=== PATIENT | female | born 1975 | race Hispanic/Latino ===

== ENCOUNTER 2022-01-09 16:10 | Outpatient (CLI) | payer OTHER | END 2022-01-09 16:11 | disposition home or self-care (01) | LOC: CSHLAB 16:10 | PROVIDERS: ATTEND Obstetrics & Gynecology | DX: Z01.818 Encounter for other preprocedural examination (principal); Z20.822 Contact with and (suspected) exposure to COVID-19 | CPT/HCPCS: 87811; 93005; 93010 ==

== ENCOUNTER 2022-01-14 05:31 | Day surgery (SDC) | payer OTHER ==
[2022-01-14 06:36] LABS: Hemoglobin 9.1 g/dL (12.0-15.5); Mean Corpuscular HGB CONC 30.8 g/dL (32.0-36.0); Mean Corpuscular Hemoglobin 21.6 pg (27.0-33.0); Mean Corpuscular Volume 70.1 fl (81.6-98.3); Mean Platelet Volume 9.5 fl (7.4-10.4); Platelet Count 291 10x3/uL (150-450); RBC Distribution Width 21.7 % (11.5-14.5); Red Blood Cell (RBC) Count 4.21 10x6/uL (3.90-5.03); White Blood Cell (WBC) Count 8.6 10x3/uL (3.5-10.5)
[2022-01-14] MEDS ORDERED: Famotidine/PF 20 mg/2ml Vial ONE (06:42)
[2022-01-14] MEDS ORDERED: CeleCOXIB 100 MG CAP ONE (06:42)
[2022-01-14] MEDS ORDERED: Gabapentin 300 MG CAP ONE (06:42)
[2022-01-14 06:44] LABS: BHCG - Serum Negative (NEGATIVE); Pregs Control Background? CLEAR/WHITE (CLR/WHITE); Pregs Control Bar Appear? YES (CONTROL BAR)
[2022-01-14] MEDS ORDERED: Bupivacaine PF 0.5% 30 ML VIAL ONE (06:47)
[2022-01-14] MEDS ORDERED: EPINEPHrine 1 MG/ML AMP ONE (06:47)
[2022-01-14 06:48] LABS: Anion Gap 13 mmol/L (10-20); BUN (Urea Nitrogen) 12 mg/dL (7.0-18.7); Calc. Creatinine Clearance 173 mL/min (70-130); Calcium 8.5 mg/dL (7.8-10.44); Carbon Dioxide 24 mmol/L (22-29); Chloride 106 mmol/L (98-107); Estimated GFR 109; Glucose 97 mg/dL (70-105); Potassium 3.8 mmol/L (3.5-5.1); Sodium 139 mmol/L (136-145)
[2022-01-14] MEDS ORDERED: Scopolamine 1.5 mg/72 hour Patch ONE (07:07)
[2022-01-14] MEDS ORDERED: Midazolam HCl 2 mg/2 ml Vial ONE (07:07)
[2022-01-14] MEDS ORDERED: Fentanyl 100 MCG/2 ML VIAL ONE ×3 (07:09→09:31)
[2022-01-14] MEDS ORDERED: PROPOFOL 20 ML ONE (07:09)
[2022-01-14] MEDS ORDERED: Lidocaine 1% PF 5 ML VIAL ONE (07:12)
[2022-01-14] MEDS ORDERED: Ondansetron PF 4 MG/2 ML Vial ONE (07:12)
[2022-01-14] MEDS ORDERED: Dexamethasone 4 mg/ml Vial ONE (07:12)
[2022-01-14] MEDS ORDERED: Rocuronium Bromide 10 MG/ML (10ML VIAL) ONE (07:12)
[2022-01-14] MEDS ORDERED: CEFAZOLIN 2 GM VIAL ONE (07:22)
[2022-01-14] MEDS ORDERED: Labetalol HCl 100 MG/20 ML VIAL ONE (08:15)
[2022-01-14] MEDS ORDERED: Glycopyrrolate 0.2 MG/ML 5 ML SYRINGE ONE (08:50)
[2022-01-14] MEDS ORDERED: HYDROcodone/Acetaminophen 5/325 mg Tablet ONE (11:19)
== END 2022-01-14 11:40 | disposition home or self-care (01) ==
LOC: CSHSDC 05:31
PROVIDERS: ATTEND Obstetrics & Gynecology
DX: N80.0 Endometriosis of uterus (principal); N72 Inflammatory disease of cervix uteri; N92.0 Excessive and frequent menstruation with regular cycle; N88.8 Other specified noninflammatory disorders of cervix uteri; N83.8 Other noninflammatory disorders of ovary, fallopian tube and broad ligament; N94.6 Dysmenorrhea, unspecified; I10 Essential (primary) hypertension; Z79.899 Other long term (current) drug therapy; Z20.822 Contact with and (suspected) exposure to COVID-19; Z98.51 Tubal ligation status
CPT/HCPCS: 36415; 80048; 84703; 85027; 86850; 86900; 86901; 88307; 88342; C1776; J0171; J0690; J1100; J2250; J2405; J2704; J3010; S0020; S0028

== ENCOUNTER 2024-03-17 07:49 | Day surgery (SDC) | payer OTHER ==
[2024-03-15 13:33] VITALS: BMI 41.1
[2024-03-17] MEDS ORDERED: PROPOFOL 40 ML ONE (10:09)
[2024-03-17] MEDS ORDERED: PHENYLEPHRINE-NS 100 MCG/ML 10 ML SYRINGE ONE (10:12)
[2024-03-17] MEDS ORDERED: fentaNYL 50 mcg/mL 1 mL Vial ONE (10:18)
== END 2024-03-17 11:25 | disposition home or self-care (01) ==
LOC: CSHSDC 07:49
PROVIDERS: ATTEND Surgery
PROC: 0DBL8ZZ Excision of Transverse Colon, Via Natural or Artificial Opening Endoscopic (ICD-10-PCS; principal; 2024-03-17)
DX: Z12.11 Encounter for screening for malignant neoplasm of colon (principal); D12.3 Benign neoplasm of transverse colon; E66.01 Morbid (severe) obesity due to excess calories; I10 Essential (primary) hypertension; F41.9 Anxiety disorder, unspecified; N20.0 Calculus of kidney; E66.9 Obesity, unspecified; F32.A Depression, unspecified; Z98.890 Other specified postprocedural states; Z68.41 Body mass index [BMI] 40.0-44.9, adult; Z88.2 Allergy status to sulfonamides; Z79.899 Other long term (current) drug therapy
CPT/HCPCS: 88305; J2704; J3010